=== PATIENT | female | born 1950 | race Caucasian/White ===

== ENCOUNTER 2024-11-29 09:15 | Emergency (ER) | payer SELFPAY ==
[2024-11-29 09:18] VITALS: BP 156/90; BMI 24.3
--- NOTE | 2024-11-29 09:22 | ED.GENMED ---
History of Present Illness
General
Chief Complaint: Fall
Source: patient and ambulance crew
Exam Limitations: none
Time Seen by Provider: 11/29/24 09:19
History of Present Illness
History of Present Illness:
74yoF with a history of hyperlipidemia presenting via EMS for evaluation after a fall less than an hour ago. Patient works at [employer]. She slipped on the floor while walking and fell. She believes she hit her head against the door. There was
no loss of consciousness. Patient was able to get up after the fall and ambulate. She had a nosebleed initially which has resolved. She is presenting with a left frontal hematoma. She denies any dizziness, visual changes, nausea, vomiting, neck
pain, pleuritic pain, back pain. No preceding dizziness or symptoms. Her only blood thinner is a baby aspirin.
Past History
Past History
ED Past Medical History: HTN, Hypercholesterolemia and Other (?right carotid stenosis?)
ED Past Surgical History: Gynecological (anemia)
Social History
Tobacco: Non-smoker
Alcohol: None
Drug: None
Living: with family
Phy Exam
General Physical Exam
General Presentation: well appearing and no apparent distress
General age: appears stated age
General Skin: warm and dry
General Habitus: normal
General Mental: alert
ENT Exam
ENT Exam: other (L frontal hematoma noted. Dried blood noted to R nare. No septal hematoma. No nasal bone tenderness or swelling. )
Additional ENT: No cervical spine tenderness.
Eye Exam
Eye Exam: PERRL and conjunctiva normal
Pulmonary Exam
Pulmonary Exam: lungs clear, no respiratory distress, no rales, chest non tender, no crackles, no rhonchi and other (No chest wall tenderness. Breath sounds equal bilaterally. )
Gastrointestinal Exam
Gastrointestinal Exam: non tender, soft and non distended
[place] Coma Scale
Eye Opening: Spontaneous
Verbal Response: Oriented
Motor Response: Obeys Commands
GCS Total Score: 15
Musculoskeletal Exam
Musculoskeletal Exam: other (No C/T/L spine tenderness. )
Skin Exam
Skin Exam: normal color, warm/dry and other (1cm superficial laceration present to dorsal aspect of R middle finger overlying lateral PIP joint. No active bleeding. No tendon involvement. ROM of DIP and PIP joint intact. No bony tenderness. )
Psychiatric Exam
Psychiatric Exam: normal mood/affect
Course
Orders/Labs/Results
Orders:
Orders
11/29/24 09:20
CT Head W/o Iv Contrast Urgent
Comment:
Reason For Exam: head injury
11/29/24 09:21
CT Cervical Spine W/o Iv Contr Urgent
Comment:
Reason For Exam: fall, head injury
11/29/24 10:07
Acetaminophen [Tylenol] 650 mg PO NOW STA
Vital Signs
Initial and Last Documented VS:
Initial Vital Signs
Temp Pulse Resp BP Pulse Ox
97.4 F 66 18 156/90 96
11/29/24 09:18 11/29/24 09:18 11/29/24 09:18 11/29/24 09:18 11/29/24 09:18
Last Documented Vital Signs
Temp Pulse Resp BP Pulse Ox
97.4 F 66 18 156/90 96
11/29/24 09:18 11/29/24 09:18 11/29/24 09:18 11/29/24 09:18 11/29/24 09:18
MDM/Problems Addressed
Differential Diagnosis Includes:
74yoF here after a mechanical fall. Slipped and fell. Struck head against door. No LOC. Presenting with headache and L frontal hematoma. No dizziness or vomiting. Takes baby aspirin daily. There is also a superficial R middle finger laceration noted
on exam. Differential diagnosis includes but is not limited to: hematoma, closed head injury, intracranial hemorrhage, skull fracture
Initial ED plan: Check CT head and CT cervical spine. Will apply glue to finger laceration.
*Critical Care Note
Total Time (30-74mins, 75-104mins- exclusive of procedures): Not Applicable
Update Note
Update Note:
Imaging negative for traumatic injuries. Glue and Band-Aid applied to finger laceration. Patient is stable for discharge. Supportive care discussed including ice. Advised follow-up with PCP. Work note provided and patient discharged in stable
condition.
ED Attending Note
-
Portions of this chart may have been created with voice recognition software.� Occasional wrong word or��sound alike� substitutions may have occurred due to the inherent limitations of voice recognition software.
Discharge Plan
Departure
Patient Disposition: Home (Routine Discharge)
Date of Disposition: 11/29/24
Time of Disposition: 10:50
Patient with high blood pressure during this ER visit?: Yes
Discharge Problem:
Fall from slip, trip, or stumble, Hematoma of frontal scalp, Laceration of right middle finger
Instructions: Head Injury in Adults (DC)
Prescriptions:
No Action
atorvastatin 80 mg tablet
80 mg PO QPM
aspirin 81 mg Tablet,Delayed Release (Dr/Ec)
81 mg PO DAILY
lisinopril 5 mg tablet
5 mg PO DAILY
Referrals:
Candelario Simon MD [Family Provider] -
Stand Alone Forms: Return to Work
Activity Restrictions/Additional Instructions:
Apply ice to help with swelling. Take Tylenol as needed for pain.
Please follow-up with your family doctor. Return to the ER with any new or worsening symptoms.
Interventions
Interventions:
*Risk Screen - Suicide Last Done: 11/29/24 09:18
*General Assessment Last Done: 11/29/24 09:18
*Neglect/Abuse Screening Last Done: 11/29/24 09:18
*ED- Fall Risk Assessment Last Done: 11/29/24 09:18
*Nursing Disposition Last Done: 11/29/24 11:03
ED-Musculoskeletal Assessment Last Done: 11/29/24 09:23
ED- Neurological Assessment Last Done: 11/29/24 09:23
ED-Skin Assessment Last Done: 11/29/24 09:23
Discharge Date and Time
Discharge Date/Time: 11/29/24 11:04
Print Language: PORTUGUESE
[2024-11-29] MEDS: TYLENOL 650 MG PO (10:19)
== END 2024-11-29 11:04 | disposition home or self-care (01) ==
LOC: EMR 09:15
PROVIDERS: EMERGENCY PHYSICIAN Emergency Medicine; FAMILY PHYSICIAN Internal Medicine
DX: S00.03XA Contusion of scalp, initial encounter (principal); S61.212A Laceration without foreign body of right middle finger without damage to nail, initial encounter; W01.0XXA Fall on same level from slipping, tripping and stumbling without subsequent striking against object, initial encounter; I10 Essential (primary) hypertension; E78.5 Hyperlipidemia, unspecified
CPT/HCPCS: 99284; 12001; 70450; 72125

== ENCOUNTER → 2025-01-09 14:41 | Outpatient (REF) | payer MEDICARE, SELFPAY | LOC: HWRAD 14:41 | PROVIDERS: ATTENDING PHYSICIAN Internal Medicine | DX: I65.23 Occlusion and stenosis of bilateral carotid arteries (principal); E78.00 Pure hypercholesterolemia, unspecified | CPT/HCPCS: 93880 ==

== ENCOUNTER → 2025-02-03 13:59 | Outpatient (REF) | payer MEDICARE, SELFPAY | LOC: RAD 13:59 | PROVIDERS: ATTENDING PHYSICIAN Surgery Vascular Surgery; FAMILY PHYSICIAN Internal Medicine | DX: I65.23 Occlusion and stenosis of bilateral carotid arteries (principal) | CPT/HCPCS: 70496; 70498; Q9967 ==

== ENCOUNTER 2025-07-03 11:49 | Emergency (ER) | payer MEDICARE, SELFPAY ==
[2025-07-03 12:11] VITALS: BP 179/90
--- NOTE | 2025-07-03 13:50 | ED.GENMED ---
History of Present Illness
General
Chief Complaint: Fever
Source: patient
Exam Limitations: none
Time Seen by Provider: 07/03/25 13:43
History of Present Illness
History of Present Illness:
75-year-old female complaining of feeling cold last evening and this morning. Also slight cough. Some chronic congestion. No sore throat no shortness of breath no chest pain no abdominal pain nausea vomiting no urinary symptoms no rash no one
else is ill at home. No dental or intraoral pain. Took a Tylenol prior to ER arrival and actually feels well at this time no objective fever. Just felt cold and chills. No rigors
Past History
Past History
ED Past Medical History: HTN, Hypercholesterolemia and Other (?right carotid stenosis?)
ED Past Surgical History: Gynecological (anemia)
Social History
Tobacco: Non-smoker
Alcohol: None
Drug: None
Living: with family
Review of Systems
Review of Systems
All Other Systems: Not applicable
Constitutional: Denies fever
Respiratory: Denies trouble breathing
Cardiac: Reports no symptoms
ABD/GI: Reports no symptoms
Phy Exam
Physical Exam
Physical Exam:
GENERAL: Alert and oriented in no apparent distress
EYE: Orbits normal.
NECK: Supple, nontender
ENT: Pharynx without erythema. Poor dentition and some caries but no abscess or intra oral tenderness
CARDIAC: Regular rate and rhythm without any obvious murmurs.
LUNGS: Clear breath sounds,normal
ABDOMEN: Soft, without focal tenderness or distention. No CVA tenderness
NEUROLOGICAL: Alert and oriented , grossly non-focal
SKIN: Warm and dry, no rash or lesion, no discoloration, skin intact.
MUSCULOSKELETAL: No edema,no deformity.Good color
PSYCH: Normal and appropriate interaction.
Course
Orders/Labs/Results
Orders:
Orders
07/03/25 13:49
CXR2 [CR Chest - 2 Views ] Urgent
Comment:
Reason For Exam: Cough/subjective fever
07/03/25 13:59
COVID-19 Antigen Urgent
Source: Nasal Swab
Influenza A+B Rapid Molecular Urgent
ZEN Source: Nasal Swab
Specimen Description:
07/03/25 14:03
Urinalysis Reflex To Culture Urgent
Date Specimen was Collected: 07/03/25
Time Specimen was Collected: 14:00
Urine Microscopic Reflex Cult Urgent
Abnormal Lab Results
07/03/25
14:03
Ur Occult Blood Reflex 1+ A
(Negative)
Urine Bacteria (Reflex) Few A
(Negative)
Vital Signs
Initial and Last Documented VS:
Initial Vital Signs
Temp Pulse Resp Pulse Ox
97.9 F 63 18 95
07/03/25 12:10 07/03/25 12:10 07/03/25 12:10 07/03/25 12:10
Last Documented Vital Signs
Temp Pulse Resp BP Pulse Ox
97.9 F 72 20 128/88 98
07/03/25 12:10 07/03/25 15:22 07/03/25 15:22 07/03/25 15:22 07/03/25 15:22
MDM/Problems Addressed
Differential Diagnosis Includes:
Patient with vague subjective chills no objective fever no rigors only physical finding or complaint would be a slight cough. She is in no respiratory distress. She is very nontoxic. Nothing on exam to support a significant bacterial infection.
With symptoms we will check COVID flu chest x-ray and urine. Do not feel labs would add value at this time.
*Pulse Oximetry
SaO2: 95
Oxygen Mode of Delivery: Room air
Patient hypoxic: no
*Critical Care Note
Total Time (30-74mins, 75-104mins- exclusive of procedures): Not Applicable
Data Reviewed
Review of Other/Old Records Reveals: Labs, Records and Testing
Update Note
Update Note:
Patient has remained stable and nontoxic. No serious etiology found. Outpatient observation and follow-up with any progression or concerning symptoms
ED Attending Note
-
Portions of this chart may have been created with voice recognition software.� Occasional wrong word or��sound alike� substitutions may have occurred due to the inherent limitations of voice recognition software.
Discharge Plan
Departure
Patient Disposition: Home (Routine Discharge)
Date of Disposition: 07/03/25
Time of Disposition: 15:42
Patient with high blood pressure during this ER visit?: Yes
Discharge Problem:
Subjective chills
Instructions: Fever, Adult (DC), BLOOD PRESSURE
Prescriptions:
No Action
atorvastatin 80 mg tablet
80 mg PO QPM
aspirin 81 mg Tablet,Delayed Release (Dr/Ec)
81 mg PO DAILY
lisinopril 5 mg tablet
5 mg PO DAILY
Referrals:
Candelario Simon MD [Family Provider, Internal Medicine] - Follow up in 2-3 days
Activity Restrictions/Additional Instructions:
Return sooner with progression of symptoms including worsening chills high fever worsening cough shortness of breath abdominal pain or any other concerning symptoms
Interventions
Interventions:
*Risk Screen - Suicide Last Done: 07/03/25 14:16
*General Assessment Last Done: 07/03/25 14:16
*Neglect/Abuse Screening Last Done: 07/03/25 14:16
*ED- Fall Risk Assessment Last Done: 07/03/25 14:16
*ED COVID-19 Vaccine History Last Done: 07/03/25 14:16
*ED Influenza Vaccine History Last Done: 07/03/25 14:16
ED- Neurological Assessment Last Done: 07/03/25 14:16
ED-Skin Assessment Last Done: 07/03/25 14:16
Discharge Date and Time
Print Language: MOLDOV[place]
[2025-07-03 14:24] LABS: Urine Character Clear (Clear)
[2025-07-03 14:37] LABS: COVID-19 Antigen Negative (Negative)
[2025-07-03 15:07] LABS: Urine Squamous Cell 0-2 /LPF (Few)
[2025-07-03 15:09] LABS: Urine Red Blood Cell 0-2 /HPF (0-2); Urine White Cell 0-2 /HPF (0-5)
[2025-07-03 15:22] VITALS: BP 128/88
== END 2025-07-03 15:49 | disposition home or self-care (01) ==
LOC: EMR 11:49
PROVIDERS: EMERGENCY PHYSICIAN Emergency Medicine; FAMILY PHYSICIAN Internal Medicine
DX: R68.83 Chills (without fever) (principal); I10 Essential (primary) hypertension; E78.00 Pure hypercholesterolemia, unspecified
CPT/HCPCS: 99283; 71046; 81003; 81015; 87502; 87811

== ENCOUNTER → 2025-08-04 14:17 | Outpatient (REF) | payer MEDICARE, SELFPAY | LOC: DHVS 14:17 | PROVIDERS: ATTENDING PHYSICIAN Surgery Vascular Surgery | DX: I65.23 Occlusion and stenosis of bilateral carotid arteries (principal) | CPT/HCPCS: 93880 ==